=== PATIENT | female | born 1955 | race Two or more races ===

== ENCOUNTER 2021-12-16 09:39 | Outpatient (CLI) | payer OTHER ==
[~2021-12-16 09:39] MED LIST: ASPIR 8181 MG; CLONAZEPAM0.125 MG/T; COZAAR50 MG; NIFEDIPINE ER60 MG; OXYBUTYNIN10 MG/BOTT; PENTOXIFYLLINE400 MG; SIMVASTATIN20 MG; SYNTHROID50 MCG; TRIAMTERENE25 GM; VENLAFAXINE HCL25 MG
== END 2021-12-16 09:47 | disposition home or self-care (01) ==
LOC: RX STUDY 09:39
PROVIDERS: ATTEND Internal Medicine Pulmonary Disease
DX: R13.19 Other dysphagia (principal)

== ENCOUNTER 2023-04-22 09:15 | Outpatient (CLI) | payer OTHER | END 2023-04-22 09:18 | disposition home or self-care (01) | LOC: SONOGRAMA 09:15 | PROVIDERS: ATTEND Internal Medicine Pulmonary Disease | DX: R10.9 Unspecified abdominal pain (principal); N18.30 Chronic kidney disease, stage 3 unspecified; R31.9 Hematuria, unspecified ==

== ENCOUNTER 2023-07-02 07:26 | Outpatient (CLI) | payer OTHER | END 2023-07-02 07:30 | disposition home or self-care (01) | LOC: SONOGRAMA 07:26 | PROVIDERS: ATTEND Specialist/Technologist, Other Nephrology | DX: E21.3 Hyperparathyroidism, unspecified (principal); Z91.013 Allergy to seafood; Z91.018 Allergy to other foods ==